=== PATIENT | female | born 1965 ===

== ENCOUNTER → 2018-01-08 | Outpatient (REF) | LOC: ZZSLMC 12:00 | PROVIDERS: ATTEND Surgery | DX: D12.8 Benign neoplasm of rectum (principal) | CPT/HCPCS: 88305 ==

== ENCOUNTER → 2018-02-01 | Outpatient (REF) | LOC: ZZSLMC 12:00 | PROVIDERS: ATTEND Surgery | DX: K29.50 Unspecified chronic gastritis without bleeding (principal) | CPT/HCPCS: 88305; 88344 ==